=== PATIENT | male | born 1975 | race African-American/Black ===

== ENCOUNTER 2024-04-02 15:17 | Observation (INO) | payer OTHER ==
[2024-04-02 16:17] LABS: HEMOGLOBIN 13.8 GM/dL (11.7-16.9); MCH 33.6 pg (25.7-33.7); MCHC 34.5 g/dl (32.0-35.9); MEAN CELL VOLUME 97.5 fl (80-96); MEAN PLT VOLUME 6.5 fl (7.5-11.1); PLATELET COUNT 218 10^3/uL (134-434); RDW 16.6 % (11.9-15.9); WHITE BLOOD COUNT 5.4 K/mm3 (4.0-10.0)
[2024-04-02 16:37] LABS: BLOOD UREA NITROGEN 8.8 mg/dL (7-18); CALCIUM 8.9 mg/dL (8.5-10.1)
[2024-04-02 16:40] LABS: CREATININE 0.8 mg/dL (0.55-1.3)
[2024-04-02 16:42] LABS: BILIRUBIN,TOTAL 0.6 mg/dL (0.2-1); TOT PROT 6.8 g/dl (6.4-8.2)
[2024-04-02 17:16] LABS: INR 0.93 (0.83-1.09); PROTHROMBIN TIME (PATIENT) 10.5 SEC (9.7-13.0)
[2024-04-02] MEDS ORDERED: ACETAMINOPHEN INJECTION 100 ML IVPB ONE (19:36)
[2024-04-02] MEDS: ACETAMINOPHEN 1000 MG/100 ML BAG IVPB ONE (19:41)
[2024-04-02] MEDS ORDERED: oxyCODONE HCL 5 MG TABLET ONE (21:44)
[2024-04-02] MEDS: oxyCODONE HCL 5 MG TABLET PO ONE (21:53)
[2024-04-03 01:14] VITALS: BMI 22.1
[2024-04-03 08:30] LABS: BASO % 1.4 % (0-2.0); EOS % 1.7 % (0-4.5); HEMATOCRIT 36.2 % (35.4-49); HEMOGLOBIN 12.4 GM/dL (11.7-16.9); MCH 33.7 pg (25.7-33.7); MCHC 34.2 g/dl (32.0-35.9); MEAN CELL VOLUME 98.5 fl (80-96); MEAN PLT VOLUME 7.1 fl (7.5-11.1); NEUT % 53.9 % (42.8-82.8); PLATELET COUNT 199 10^3/uL (134-434); RBC 3.68 M/mm3 (4.00-5.60); RDW 15.6 % (11.9-15.9); WHITE BLOOD COUNT 6.1 K/mm3 (4.0-10.0)
[2024-04-03 08:50] LABS: POTASSIUM 3.6 mmol/L (3.5-5.1)
[2024-04-03 08:54] LABS: ALBUMIN 2.8 g/dl (3.4-5.0); BLOOD UREA NITROGEN 5.7 mg/dL (7-18); CALCIUM 8.4 mg/dL (8.5-10.1); MAGNESIUM 1.8 mg/dL (1.8-2.4)
[2024-04-03 08:58] LABS: CREATININE 0.6 mg/dL (0.55-1.3); PHOSPHOROUS 2.9 mg/dL (2.5-4.9)
[2024-04-03 08:59] LABS: BILIRUBIN,TOTAL 0.7 mg/dL (0.2-1); TOT PROT 6.1 g/dl (6.4-8.2)
[2024-04-03] MEDS: NICOTINE 7 MG/24 HOURS TOPICAL PATCH TD SCH (10:10)
[2024-04-03 10:19] LABS: MAGNESIUM 2.2 mg/dL (1.8-2.4)
[2024-04-03 13:46] LABS: PH,URINE 5.5 (5.0-8.0); URINE APPEARANCE CLEAR; URINE BILIRUBIN NEGATIVE (NEGATIVE); URINE COLOR YELLOW; URINE GLUCOSE (UA) NEGATIVE (NEGATIVE); URINE KETONE NEGATIVE (NEGATIVE); URINE LEUK ESTERASE NEGATIVE (NEGATIVE); URINE NITRITE NEGATIVE (NEGATIVE); URINE PROTEIN TRACE (NEGATIVE); URINE UROBILINOGEN 0.2 mg/dL (0.2-1.0)
[2024-04-03] MEDS: oxyCODONE HCL 5 MG TABLET PO SCH (13:55)
[2024-04-03] MEDS: ACETAMINOPHEN 325 MG TABLET (FP) PO SCH (13:55)
[2024-04-03] MEDS ORDERED: PATIENT'S OWN MEDICATION (NON-FORMULARY) (Oxycodone Hcl/Acetaminophen [Oxycodone-Acetamino PO SCH (14:00)
[2024-04-04] MEDS: ACETAMINOPHEN 325 MG TABLET (FP) PO PRN (04:17)
[2024-04-04] MEDS ORDERED: ACETAMINOPHEN 325 MG TABLET (FP) PO PRN (10:25)
[2024-04-04] MEDS: oxyCODONE HCL 5 MG TABLET PO PRN (11:04)
[2024-04-04 13:28] VITALS: RESP 18
[2024-04-04 15:52] VITALS: BP 126/86; PULSE 78; TEMP 98.8
== END 2024-04-04 16:58 | disposition home or self-care (01) ==
LOC: JER 15:17 → JERBED 19:51 → J7W 04-03 00:42
PROVIDERS: ADMIT Internal Medicine; ATTEND Internal Medicine
PROC: 3E033NZ Introduction of Analgesics, Hypnotics, Sedatives into Peripheral Vein, Percutaneous Approach (ICD-10-PCS; principal; 2024-04-02)
DX: I73.9 Peripheral vascular disease, unspecified (principal); M79.605 Pain in left leg; I87.8 Other specified disorders of veins; F17.210 Nicotine dependence, cigarettes, uncomplicated
CPT/HCPCS: 36415; 75635-TC; 80053; 80061; 81003; 83036; 83735; 84100; 85025; 85027; 85610; 86850; 86900; 86901; 93005; 93010; 96373; 96374; 99285-25; G0378; J0131; Q9967